=== PATIENT | female | born 1945 | race Caucasian/White ===

== ENCOUNTER 2017-01-25 09:55 | Emergency (ER) | payer MEDICARE, OTHER ==
[~2017-01-25] VITALS: Ht 157.5 cm; Wt 98.0 kg
[~2017-01-25 09:55] MED LIST: ASAC400T PO; CORTI10A LEFT EAR; LEVO50TA51 PO; LORTA5 PO; SPIR25TA PO; ZITHTAB6 PO
[2017-01-25 09:58] VITALS: BP 156/78; PULSE 103; RESP 16; TEMP 97.9; O2SAT 94
[2017-01-25] MEDS ORDERED: TRIA37.5 PO (10:12)
[2017-01-25] MEDS ORDERED: ALBU.5I NEB (10:12)
[2017-01-25] MEDS ORDERED: [UNRECOGNIZED DRUG - OTHER] (10:12)
[2017-01-25] MEDS ORDERED: TETANUS/DIPHTHERIA TOXOID ADULT 0.5 ML VIAL IM ONE (10:15)
[2017-01-25] MEDS ORDERED: AUGM875T3 PO (10:25)
--- NOTE | 2017-01-25 10:40 | PD ---
HPI . Cat bite Chief Complaint: Bite or Sting Time Seen by Provider: 10:05 Travel History International Travel<30 days: No Contact w/Intl Traveler<30days: No Traveled to known affect area: No History of Present Illness HPI 71-year-old female presents emergency department for evaluation of a cat bite she sustained to her right forearm this morning from her personal cat. She states that her cat is up-to-date on his vaccines. Patient denies any history of diabetes. Patient is unsure she is up-to-date on her tetanus however believes she received it from her primary care in June. Patient requests to follow-up with her primary care regarding tetanus. Patient denies any fever, chills, chest pain, shortness breath, paresthesias, abdominal pain, nausea, vomiting, diarrhea or lightheadedness. PFSH Past Medical History Hx Anticoagulant Therapy: No Asthma: Yes Cardiovascular Problems: Yes (HTN) Diabetes: No Hypertension: Yes Thyroid Disease: Yes Tetanus Vaccination: Unknown ?: Not Menopausal: Yes Past Surgical History Section: Yes Cholecystectomy: Yes Social History Alcohol Use: No Tobacco Use: No Substance Use: No Allergies-Medications (Allergen,Severity, Reaction): Coded Allergies: Iodinated Contrast- Oral and IV Dye (Unverified Allergy, Severe, RESP DISTRESS, 01/25/17) Sulfa (Sulfonamide Antibiotics) (Unverified Allergy, Severe, HIVES, ) codeine (Unverified Allergy, Severe, RESP DISTRESS, 01/25/17) meloxicam (Unverified Allergy, Severe, RENAL FAILURE, 01/25/17) Reported Meds & Prescriptions Reported Meds & Active Scripts Active Augmentin (Amoxicillin-Clavulanate) 875-125 Mg Tab 1 Tab PO BID 7 Days Reported [heart rate med] Albuterol Neb (Albuterol Sulfate) 2.5 Mg/0.5 Ml Neb 2.5 Mg NEB ONCE Note: The Albuterol Sulfate Inhalation Solution is concentrated and must be diluted. Read complete instructions carefully before using. Triamterene-Hydrochlorothiazide 37.5-25 Mg Tab 1 Tab PO DAILY Review of Systems Except as stated in HPI: all other systems reviewed are Neg Physical Exam Narrative GENERAL: Well-nourished, well-developed 71-year-old female patient in no acute distress. Nontoxic appearing. SKIN: 2 cm laceration/skin tear to the right forearm and a horseshoe-shape. HEAD: Normocephalic. Atraumatic. NECK: Supple, trachea midline. No JVD or lymphadenopathy. CARDIOVASCULAR: Regular rate and rhythm without murmurs, gallops, or rubs. Radial pulses +2 bilaterally. RESPIRATORY: Breath sounds equal bilaterally. No accessory muscle use. GASTROINTESTINAL: Abdomen soft, non-tender, nondistended. MUSCULOSKELETAL: Full range of motion of left upper extremity. No erythema, ecchymosis, cyanosis, or edema. Data Data Last Documented VS Vital Signs Date Time Temp Pulse Resp B/P (MAP) Pulse Ox O2 Delivery O2 Flow Rate FiO2 01/25/17 09:58 97.9 103 16 156/78 (104) 94 Orders Orders Tetanus/Diphtheria Tox Adult (Tetanus/Di (01/25/17 10:15) Ed Discharge Order (01/25/17 10:58) MDM Medical Decision Making Medical Screen Exam Complete: Yes Emergency Medical Condition: Yes Differential Diagnosis Differential diagnoses include but are not limited to cat bite, laceration, cellulitis Narrative Course 71-year-old female presents emergency department for evaluation cat bite to right forearm. Laceration/skin tear was thoroughly cleaned with half normal saline and Betadine. Patient has thin fragile skin. Laceration was approximated with Steri-Strips. Patient requested to follow-up with her primary care regarding her tetanus status. Patient discharged home with prescription for Augmentin to treat cat bite and instructed to keep the wound clean and dry, return to the emergency Department with any worsening condition but otherwise follow up with primary care. Procedures Procedure Narrative LACERATION LOCATION: Left forearm LENGTH: 2cm Approximated with Steri-Strips REPAIR: The area of the laceration was prepped with Betadine and sterilely draped. The wound was copiously irrigated and explored without evidence of foreign body, tendon injury or neurovascular injury. The wound was approximated using Steri-Strips. This was a single layer repair. A sterile dressing was applied. The patient was advised to keep the dressing clean and dry. Patient tolerated the procedure well. Diagnosis Primary Impression: Cat bite Qualified Codes: W55.01XA - Bitten by cat, initial encounter Referrals: Primary Care Physician Patient Instructions: Animal Bite (ED), General Instructions Additional Instructions: Please return to emergency department if your symptoms return or worsen. Follow up with your primary care provider. Take medications as prescribed. Keep wound clean and dry. Follow-up with your primary care regarding tetanus status. Med/Other Pt SpecificInfo: Prescription(s) given Scripts Amoxicillin-Clavulanate (Augmentin) 875-125 Mg Tab 1 TAB PO BID for Infection for 7 Days, #14 TAB 0 Refills Prov: Laura Loving 01/25/17 Disposition: 01 DISCHARGE HOME Condition: Stable Laura Loving Jan 25, 2017 10:40
== END 2017-01-25 11:07 | disposition home or self-care (01) ==
LOC: PHEFT 09:55
DX: S51.851A Open bite of right forearm, initial encounter (principal); W55.01XA Bitten by cat, initial encounter
CPT/HCPCS: 99283

== ENCOUNTER 2017-03-05 12:01 | Emergency (ER) | payer MEDICARE ==
[~2017-03-05] VITALS: Ht 157.5 cm; Wt 99.0 kg
[~2017-03-05 12:01] MED LIST changes: +ALBU.5I NEB; -ASAC400T PO; +AUGM875T3 PO; -CORTI10A LEFT EAR; -LEVO50TA51 PO; -LORTA5 PO; -SPIR25TA PO; +TRIA37.5 PO; -ZITHTAB6 PO; +[UNRECOGNIZED DRUG - OTHER]
[2017-03-05 12:03] VITALS: BP 179/81; PULSE 100; RESP 18; TEMP 97.5; O2SAT 96
[2017-03-05] MEDS ORDERED: SYMB160A INH (12:24)
[2017-03-05] MEDS ORDERED: LEVO.05 PO (12:29)
--- NOTE | 2017-03-05 12:29 | PD ---
HPI Chief Complaint: Fall Time Seen by Provider: 12:13 Travel History International Travel<30 days: No Contact w/Intl Traveler<30days: No Traveled to known affect area: No History of Present Illness HPI This 71-year-old female fell forward at home and landed directly on her face. She had glasses on. She had some bleeding from the right side of her nose. She did not lose consciousness. She is having pain in her head and also at the site where the glasses impacted on her nose. She also has pain in her right second toe. He had slippers on at the time of the fall [facility] Past Medical History Hx Anticoagulant Therapy: No Asthma: Yes Cardiovascular Problems: Yes (HTN) Diabetes: No Hypertension: Yes Thyroid Disease: Yes Influenza Vaccination: Yes ?: Not Menopausal: Yes Past Surgical History Section: Yes Cholecystectomy: Yes Social History Alcohol Use: No Tobacco Use: No Substance Use: No Allergies-Medications (Allergen,Severity, Reaction): Coded Allergies: Iodinated Contrast- Oral and IV Dye (Unverified Allergy, Severe, RESP DISTRESS, 03/05/17) Sulfa (Sulfonamide Antibiotics) (Unverified Allergy, Severe, HIVES, ) codeine (Unverified Allergy, Severe, RESP DISTRESS, 03/05/17) meloxicam (Unverified Allergy, Severe, RENAL FAILURE, 03/05/17) Reported Meds & Prescriptions Reported Meds & Active Scripts Active Reported Synthroid (Levothyroxine Sodium) 50 Mcg Tab 50 Mcg PO DAILY Symbicort Inh (Budesonide/Formoterol Fumarate) 160-4.5 Mcg/Act Aero 1 Puff INH Q12HR [heart rate med] Albuterol Neb (Albuterol Sulfate) 2.5 Mg/0.5 Ml Neb 2.5 Mg NEB ONCE Note: The Albuterol Sulfate Inhalation Solution is concentrated and must be diluted. Read complete instructions carefully before using. Triamterene-Hydrochlorothiazide 37.5-25 Mg Tab 1 Tab PO DAILY Review of Systems General / Constitutional: No: Fever, Chills Eyes: No: Diploplia, Blurred Vision HENT: Positive: Headaches, Nosebleed Cardiovascular: No: Chest Pain or Discomfort, Palpitations Respiratory: No: Cough, Shortness of Breath Gastrointestinal: No: Nausea, Vomiting Musculoskeletal: Positive: Pain Skin: No Rash Neurologic: No: Weakness Hematologic/Lymphatic: No: Easy Bruising Physical Exam Narrative GENERAL: Well-developed female SKIN: Focused skin assessment warm/dry. HEAD: Atraumatic. Normocephalic. EYES: Pupils equal and round. No scleral icterus. No injection or drainage. ENT: No nasal bleeding at this time. There is some tenderness of the nose. It appears to be in the midline. Mucous membranes pink and moist. NECK: Trachea midline. No JVD. CARDIOVASCULAR: Regular rate and rhythm. No murmur appreciated. RESPIRATORY: No accessory muscle use. Clear to auscultation. Breath sounds equal bilaterally. GASTROINTESTINAL: Abdomen soft, non-tender, nondistended. Hepatic and splenic margins not palpable. MUSCULOSKELETAL: There is some tenderness of the right second toe. There is some ecchymosis of the left knee without bony tenderness NEUROLOGICAL: Awake and alert. No obvious cranial nerve deficits. Motor grossly within normal limits. Normal speech. PSYCHIATRIC: Appropriate mood and affect; insight and judgment normal. Data Data Last Documented VS Vital Signs Date Time Temp Pulse Resp B/P (MAP) Pulse Ox O2 Delivery O2 Flow Rate FiO2 03/05/17 12:16 97 Room Air 03/05/17 12:03 97.5 100 18 179/81 (113) Orders Orders Ct Brain W/O Iv Contrast(Rout) (03/05/17 12:22) Toe (Min 2vws) (03/05/17 12:22) MDM Medical Decision Making Medical Screen Exam Complete: Yes Emergency Medical Condition: Yes Medical Record Reviewed: Yes Differential Diagnosis Differential includes nasal fracture, fractured toe, intracranial hemorrhage Narrative Course CT of the brain is negative. A nondisplaced nasal fracture is apparent. X-ray of the toe does not show any fracture Diagnosis Primary Impression: Nasal fracture Qualified Codes: S02.2XXA - Fracture of nasal bones, initial encounter for closed fracture Disposition: DISCHARGE HOME Condition: Stable Jonatan Delvalle MD Mar 05, 2017 12:29
--- NOTE | 2017-03-05 12:58 | RADRPT ---
EXAM DATE/TIME: 03/05/2017 12:44 [facility] COMPARISON: No previous studies available for comparison. INDICATIONS : Fall, nasal pain. RADIATION DOSE: 59.85 CTDIvol (mGy) MEDICAL HISTORY : Hypertension. SURGICAL HISTORY : Cholecystectomy. ENCOUNTER: Initial ACUITY: 1 day PAIN SCALE: 5/10 LOCATION: cranial TECHNIQUE: Multiple contiguous axial images were obtained of the head. Using automated exposure control and adj ustment of the mA and/or kV according to patient size, radiation dose was kept as low as reasonably a chievable to obtain optimal diagnostic quality images. DICOM format image data is available electro nically for review and comparison. FINDINGS: CEREBRUM: The ventricles are normal for age. No evidence of midline shift, mass lesion, hemorrhage or acute in farction. No extra-axial fluid collections are seen. POSTERIOR FOSSA: The cerebellum and brainstem are intact. The 4th ventricle is midline. The cerebellopontine angle i s unremarkable. EXTRACRANIAL: The visualized portion of the orbits is intact. SKULL: The calvaria is intact. No evidence of skull fracture. CONCLUSION: Negative noncontrast CT brain. Warner Salas MD on March 05, 2017 at 12:55 Board Certified Radiologist. This report was verified electronically.
--- NOTE | 2017-03-05 13:20 | RADRPT ---
EXAM DATE/TIME: 03/05/2017 13:01 [facility] COMPARISON: No previous studies available for comparison. INDICATIONS : Right second digit pain post fall. MEDICAL HISTORY : Hypertension. SURGICAL HISTORY : Cholecystectomy. ENCOUNTER: Initial ACUITY: 1 day PAIN SCORE: 4/10 LOCATION: Right distal 2nd digit FINDINGS: Examination of the second digit of the right foot demonstrates no evidence of fracture or dislocation . No radiopaque foreign bodies are seen. The soft tissues are intact. CONCLUSION: No evidence of acute fracture or dislocation. Sudhakar Romano MD on March 05, 2017 at 13:18 Board Certified Radiologist. This report was verified electronically.
== END 2017-03-05 13:25 | disposition home or self-care (01) ==
LOC: PHED 12:01
DX: S02.2XXA Fracture of nasal bones, initial encounter for closed fracture (principal); M79.674 Pain in right toe(s); W19.XXXA Unspecified fall, initial encounter; Y92.009 Unspecified place in unspecified non-institutional (private) residence as the place of occurrence of the external cause; I10 Essential (primary) hypertension; J45.909 Unspecified asthma, uncomplicated
CPT/HCPCS: 70450; 73660; 99284